=== PATIENT | female | born 1955 | race American Indian/Alaskan Native ===

== ENCOUNTER 2021-10-21 07:38 | Emergency (ER) | payer BC ==
[2021-10-21] MEDS ORDERED: KETOROLAC 30 MG/1 ML INJ IM ONE (10:23)
--- NOTE | 2021-10-21 10:25 | Emergency Department Report ---
ED Back Pain/Injury HPI - General Chief Complaint: Back Pain/Injury Stated Complaint: HIP/BACK PAIN Source: patient Limitations: No Limitations - History of Present Illness Initial Comments: 66-year-old female presents to the ED complaining of back pain that radiates to her hip. Patient states that she slipped and fell while walking up 3 steps x3 days ago. Patient has no obvious deformity noted. No distracting injury noted. No edema noted. Patient is ambulatory. Patient states pain is a current 8 out of 10 when ambulating. Patient denies any numbness or tingling. Patient is alert and oriented x3. No acute distress noted. No ill appearance noted. MD Complaint: back pain Onset/Timin -: days(s) Similar Symptoms Previously: No Place: home Radiation: other Severity scale (0 -10): 6 Quality: aching Consistency: intermittent Improves With: none Worsens With: movement Associated Symptoms: denies other symptoms - Related Data Previous Rx's Medication Instructions Recorded Last Taken Type traMADoL [Ultram] 50 mg PO Q4HR PRN 3 Days #12 tablet 10/21/21 Unknown Rx Allergies Allergy/AdvReac Type Severity Reaction Status Date / Time No Known Allergies Allergy Verified 10/21/21 07:44 ED Review of Systems ROS: Stated complaint: HIP/BACK PAIN Other details as noted in HPI Constitutional: denies: chills, fever Eyes: denies: eye pain, eye discharge, vision change ENT: denies: ear pain, throat pain Respiratory: denies: cough, shortness of breath, wheezing Cardiovascular: denies: chest pain, palpitations Endocrine: no symptoms reported Gastrointestinal: denies: abdominal pain, nausea, diarrhea Genitourinary: denies: urgency, dysuria, discharge Musculoskeletal: back pain. denies: joint swelling, arthralgia Skin: denies: rash, lesions Neurological: denies: headache, weakness, paresthesias Psychiatric: denies: anxiety, depression Hematological/Lymphatic: denies: easy bleeding, easy bruising ED Past Medical Hx - Medications Home Medications: Home Medications Medication Instructions Recorded Confirmed Last Taken Type traMADoL [Ultram] 50 mg PO Q4HR PRN 3 Days #12 tablet 10/21/21 Unknown Rx ED Physical Exam - General Limitations: No Limitations General appearance: alert, in no apparent distress - Head Head exam: Present: atraumatic, normocephalic - Eye Eye exam: Present: normal appearance - ENT ENT exam: Present: mucous membranes moist - Neck Neck exam: Present: normal inspection - Respiratory Respiratory exam: Present: normal lung sounds bilaterally. Absent: respiratory distress - Cardiovascular Cardiovascular Exam: Present: regular rate, normal rhythm. Absent: systolic murmur, diastolic murmur, rubs, gallop - GI/Abdominal GI/Abdominal exam: Present: soft, normal bowel sounds - Extremities Exam Extremities exam: Present: normal inspection - Back Exam Back exam: Present: normal inspection, tenderness - Neurological Exam Neurological exam: Present: alert, oriented X3 - Psychiatric Psychiatric exam: Present: normal affect, normal mood - Skin Skin exam: Present: warm, dry, intact, normal color. Absent: rash ED Course Vital Signs 10/21/21 10/21/21 10/21/21 07:41 10:29 10:30 Temperature 98.5 F 98.7 F Pulse Rate 73 76 Respiratory 20 14 14 Rate Blood Pressure 148/81 118/80 [Right] O2 Sat by Pulse 99 100 Oximetry ED Medical Decision Making - Medical Decision Making 66-year-old female presents to the ED complaining of back pain that radiates to her hip. Patient states that she slipped and fell while walking up 3 steps x3 days ago. Patient has no obvious deformity noted. No distracting injury noted. No edema noted. Patient is ambulatory. Patient states pain is a current 8 out of 10 when ambulating. Patient denies any numbness or tingling. Patient is alert and oriented x3. No acute distress noted. No ill appearance noted. Patient abnormal x-ray report shows worsening for compression fracture. Upon further discussion with patient after x-ray patient informed that she had recently taken an x-ray at [facility]. Patient has an appointment with [facility] on Wednesday at 2pm. Patient revealed that she came to the ED with a continuous pain of her back. While in room with patient got a text from [facility] performing appointment for Wednesday through patient my chart . Patient ambulated without difficulty and states that pain was 0 out of 10 after receiving Toradol 30 mg IM. Rechecked the patient is resting quietly , comfortable and feeling better. I discussed the results of diagnostic study, my clinical impression and the plan for further treatment with the patient. Patient agrees with plan and discharge at this present time. All question addressed. I have given the patient instruction regarding a diagnosis ,expectation ,follow- up and return precaution. I explained to the patient that emergent condition may arise and to return to the ED for new worsen and any new persisting condition. I have explained the importance of following up with the primary care physician or referral physician listed below has instructed. The patient verbalized understanding of discharge instruction. Critical care attestation.: If time is entered above; I have spent that time in minutes in the direct care of this critically ill patient, excluding procedure time. ED Disposition Clinical Impression: Fall Qualifiers: Encounter type: initial encounter Qualified Code(s): W19.XXXA - Unspecified fall, initial encounter Disposition: HOME / SELF CARE / HOMELESS Is pt being admited?: No Does the pt Need Aspirin: No Condition: Stable Instructions: Hip Pain, Fall Prevention in the Home, Adult, Chronic Back Pain Additional Instructions: Follow-up with orthopedic as previous schedule Return to the ED for any worsening symptom Prescriptions: traMADoL [Ultram] 50 mg PO Q4HR PRN 3 Days #12 tablet PRN Reason: Pain Referrals: REENA MORENO MD [Primary Care Provider] - 3-5 Days [facility] [Provider Group] - 3-5 Days Forms: Work/School Release Form(ED) Time of Disposition: 11:41
[2021-10-21 10:31] VITALS: BP 118/80
--- NOTE | 2021-10-21 11:24 | XRay Report ---
Bilateral hips-3 total views INDICATION: fall. COMPARISON: None available. IMPRESSION: No acute osseous abnormality. Normal alignment. 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 Soft tissues are unremarkable. Signer Name: Vel Campbell MD Signed: 10/21/2021 11:19 AM Workstation Name: [id number]
--- NOTE | 2021-10-21 11:25 | XRay Report ---
Lumbar spine-3 views INDICATION: fall. COMPARISON: None. IMPRESSION: Grade 1 anterolisthesis of L4 on L5 with otherwise normal alignment. Mild multilevel di scogenic DJD. Mild superior endplate wedging at L1 with approximately 25% height loss, worrisome for compression fracture. Signer Name: Vel Campbell MD Signed: 10/21/2021 11:21 AM Workstation Name: [id number]
== END 2021-10-21 12:29 | disposition home or self-care (01) ==
LOC: ED 07:38
DX: M54.50 Low back pain, unspecified (principal); W18.39XA Other fall on same level, initial encounter; Y93.89 Activity, other specified; Y92.89 Other specified places as the place of occurrence of the external cause; Y99.8 Other external cause status
CPT/HCPCS: 72100; 73521; 96372; 99283; J1885